=== PATIENT | male | born 1965 | race Caucasian/White ===

== ENCOUNTER 2017-04-16 02:39 | Inpatient (IN) | payer SELFPAY ==
[2017-04-16] MEDS ORDERED: SODIUM CHLORIDE 0.9% 1,000 ML IV ONE ×2 (02:46→03:25)
[2017-04-16] MEDS ORDERED: ONDANSETRON 4 MG/2 ML VIAL IVP STA ×2 (03:03→03:58)
[2017-04-16] MEDS ORDERED: MORPHINE 10 MG/ML VIAL IVP STA ×2 (03:03→03:43)
--- NOTE | 2017-04-16 03:03 | ED Physician Documentation ---
PD HPI ABD PAIN - Stated complaint Stated Complaint: NAUSEA - Chief complaint Chief Complaint: Abd Pain - History obtained from History obtained from: Patient - History of Present Illness Timing - onset: How many days ago (2) Timing - details: Gradual onset, Still present Quality: Cramping, Aching Location: All over / everywhere, Epigastric Worsened by: Eating Associated symptoms: Nausea, Constipation. No: Fever, Vomiting Similar symptoms before: Work up / diagnostics, Treatment Recently seen: Not recently seen - Additional information Additional information: patient is a 52 year old insulin dependent diabetic who is presenting to the emergency department for abdominal pain and nausea. Patient states that the symptoms started yesterday and have become progressively worse. patient states that he had a change in his insurance so he has not had any long acting insulin. Patient states that he has been in dka in the past and is worried that it is happening again. patient denies vomiting but states that after having his abdominal surgery he is unable to vomit. Patient reports a normal bowel movement yesterday. Review of Systems Constitutional: denies: Fever, Chills Eyes: denies: Decreased vision Ears: denies: Ear pain, Drainage/discharge Nose: reports: Reviewed and negative Throat: reports: Reviewed and negative Cardiac: denies: Chest pain / pressure, Palpitations Respiratory: denies: Dyspnea, Cough, Wheezing GI: reports: Abdominal Pain, Nausea. denies: Vomiting, Constipation, Diarrhea : denies: Dysuria, Frequency, Hesitancy Skin: denies: Rash, Lesions Musculoskeletal: denies: Neck pain, Back pain, Extremity pain Neurologic: denies: Generalized weakness, Focal weakness, Altered mental status Immunocompromised: denies: Immunocompromised PD PAST MEDICAL HISTORY - Present Medications Home Medications: Ambulatory Orders Medication Instructions Recorded Confirmed Gemfibrozil [Lopid] 600 mg PO BIDAC 04/16/17 04/16/17 Insulin Glargine [Lantus Solostar] 60 units SQ DAILY 04/16/17 04/16/17 Insulin Lispro [Humalog] 10 units SQ QID PRN 04/16/17 04/16/17 Lisinopril 20 mg PO DAILY 04/16/17 04/16/17 Methylphenidate HCl [Ritalin] 1 tab PO DAILY 04/16/17 04/16/17 Methylphenidate [Ritalin] 1 tab PO QPM 04/16/17 04/16/17 - Allergies Allergies/Adverse Reactions: Allergies Allergy/AdvReac Type Severity Reaction Status Date / Time No Known Drug Allergies Allergy Verified 04/16/17 02:47 PD ED PE NORMAL - General General: Alert and oriented X 3 - HEENT HEENT: Atraumatic - Neck Neck: Supple, no meningeal sign - Cardiac Cardiac: No murmur - Respiratory Respiratory: No respiratory distress, Clear bilaterally - Derm Derm: Normal color, Warm and dry, No rash - Extremities Extremities: No deformity, Normal ROM s pain, No edema, No calf tenderness / cord - Neuro Neuro: Alert and oriented X 3, No motor deficit, No sensory deficit, Normal speech - Psych Psych: Normal mood PD ED PE EXPANDED - General General: Alert, In Pain - HEENT HEENT: Dry mucous membranes, Other (poor dentition) - Cardiac Cardiac: Tachy - Abdomen Abdomen: Tender to palpation, Epigastric, Generalized/diffuse. No: Rebound, Guarding Results - Vitals Vitals: Vital Signs - 24 hr 04/16/17 04/16/17 02:40 03:23 Temperature 36.4 C L Heart Rate 134 H 106 H Respiratory 18 13 Rate Blood Pressure 133/86 H 132/100 H O2 Saturation 96 96 Oxygen O2 Source Room air - Labs Labs: Laboratory Tests 04/16/17 04/16/17 04/16/17 02:50 02:55 02:55 WBC 14.6 H RBC 5.76 Hgb 17.0 Hct 50.8 MCV 88.1 MCH 29.6 MCHC 33.6 RDW 13.5 Plt Count 305 MPV 9.2 Neut # 10.9 H Lymph # 2.5 [place] # 1.0 Eos # 0.1 Baso # 0.1 Absolute Nucleated RBC 0.01 Nucleated RBC % 0.0 VBG pH VBG pCO2 VBG pO2 VBG HCO3 VBG Total CO2 VBG O2 Saturation VBG Base Excess Sodium 132 L Potassium 4.3 Chloride 106 Carbon Dioxide 12 L* Anion Gap 14.0 H BUN 17 Creatinine 0.9 Estimated GFR (MDRD) 88 L Glucose 318 H Lactic Acid Calcium 9.2 Phosphorus 3.1 Magnesium 1.6 L Total Bilirubin 1.3 H AST 14 ALT 20 Alkaline Phosphatase 91 Total Protein 7.5 Albumin 4.3 Globulin 3.2 Albumin/Globulin Ratio 1.3 Lipase 122 H Urine Color YELLOW Urine Clarity CLEAR Urine pH 6.0 Ur Specific [place] >=1.030 H Urine Protein NEGATIVE Urine Glucose (UA) 500 H Urine Ketones >=80 H Urine Occult Blood NEGATIVE Urine Nitrite NEGATIVE Urine Bilirubin NEGATIVE Urine Urobilinogen 0.2 (NORMAL) Ur Leukocyte Esterase NEGATIVE Ur Microscopic Review NOT INDICATED Urine Culture Comments NOT INDICATED Serum Ketones MODERATE H 04/16/17 04/16/17 02:55 02:55 WBC RBC Hgb Hct MCV MCH MCHC RDW Plt Count MPV Neut # Lymph # [place] # Eos # Baso # Absolute Nucleated RBC Nucleated RBC % VBG pH 7.287 L VBG pCO2 27.7 L VBG pO2 87.9 H VBG HCO3 12.9 L VBG Total CO2 13.8 L VBG O2 Saturation 96.6 H VBG Base Excess -11.6 L Sodium Potassium Chloride Carbon Dioxide Anion Gap BUN Creatinine Estimated GFR (MDRD) Glucose Lactic Acid 1.0 Calcium Phosphorus Magnesium Total Bilirubin AST ALT Alkaline Phosphatase Total Protein Albumin Globulin Albumin/Globulin Ratio Lipase Urine Color Urine Clarity Urine pH Ur Specific [place] Urine Protein Urine Glucose (UA) Urine Ketones Urine Occult Blood Urine Nitrite Urine Bilirubin Urine Urobilinogen Ur Leukocyte Esterase Ur Microscopic Review Urine Culture Comments Serum Ketones - Rads (name of study) ct abdomen and pelvis Radiology: Final report received, See rad report (possible ileus) PD MEDICAL DECISION MAKING - ED course Complexity details: reviewed old records, reviewed results, re-evaluated patient , considered differential, d/w patient, d/w events solutions consultant ED course: Patient was seen and examined at bedside. IV access was gained and labs were drawn. patient was treated with a fluid bolus, zofran and morphine. Imaging was ordered. When patient's labs came back patient was found to be in mild dka. A second liter of fluid was added and patient was started on an insulin drip with supplemental potassium. Patient was still in pain and treated with additional morphine. patient was sent for imaging. When patient returned the results were reviewed. There were no specific emergent findings. Hospitalist was contacted and the case was discussed with her. Patient was admitted for further evaluation and care. Departure - Departure Disposition: ED Place in Observation Clinical Impression: DKA (diabetic ketoacidoses) Condition: Stable
[2017-04-16 03:10] LABS: GLUCOSE, URINE (UA) 500 mg/dL (NEGATIVE); KETONES,URINE (UA) >=80 mg/dL (NEGATIVE); LEUKOCYTE ESTERASE, URINE NEGATIVE (NEGATIVE); NITRITE,URINE NEGATIVE (NEGATIVE); OCCULT BLOOD,URINE NEGATIVE (NEGATIVE); PROTEIN,URINE NEGATIVE (NEGATIVE); UROBILINOGEN,URINE 0.2 (NORMAL) E.U./dL (NORMAL)
[2017-04-16 03:15] LABS: BASOPHILS # (AUTO) 0.1 10^3/uL (0.0-0.1); BASOPHILS % (AUTO) 0.8 %; EOSINOPHILS # (AUTO) 0.1 10^3/uL (0.0-0.7); EOSINOPHILS % (AUTO) 0.8 %; LYMPHOCYTES # (AUTO) 2.5 10^3/uL (1.5-3.5); LYMPHOCYTES % (AUTO) 16.9 %; MEAN CORPUSCULAR HEMOGLOBIN 29.6 pg (27.0-31.0); MEAN CORPUSCULAR HGB CONC 33.6 g/dL (32.0-36.0); MEAN CORPUSCULAR VOLUME 88.1 fL (80.0-94.0); MEAN PLATELET VOLUME 9.2 fL (7.4-11.4); NEUTROPHILS # (AUTO) 10.9 10^3/uL (1.5-6.6); NEUTROPHILS % (AUTO) 74.5 %; PLT - PLATELET COUNT 305 10^3/uL (130-450); RED BLOOD COUNT 5.76 10^6/uL (4.70-6.10); RED CELL DISTRIBUTION WIDTH 13.5 % (12.0-15.0); WHITE BLOOD COUNT 14.6 x10^3/uL (4.8-10.8)
[2017-04-16 03:18] LABS: BILIRUBIN,URINE NEGATIVE (NEGATIVE); CLARITY,URINE CLEAR (CLEAR); ICTOTEST,URINE NEGATIVE
[2017-04-16 03:19] LABS: KETONES, SERUM (ACETEST) MODERATE (NEGATIVE); VBG BASE EXCESS -11.6 mmol/L (-2 - +2); VBG PCO2 27.7 mmHg (41-51); VBG PH 7.287 (7.31-7.41); VBG PO2 87.9 mmHg (25-47); VBG TOTAL CO2 13.8 mmol/L (24-29)
[2017-04-16 03:30] LABS: ALBUMIN 4.3 g/dL (3.2-5.5); ALBUMIN/GLOBULIN RATIO 1.3 (1.0-2.2); ALKALINE PHOSPHATASE 91 IU/L (42-121); ALT ALANINE AMINOTRANSFERASE 20 IU/L (10-60); AST ASPARTATE AMINOTRANSFERASE 14 IU/L (10-42); BILIRUBIN,TOTAL 1.3 mg/dL (0.2-1.0); BUN - BLOOD UREA NITROGEN 17 mg/dL (6-20); CALCIUM 9.2 mg/dL (8.5-10.3); CHLORIDE 106 mmol/L (101-111); CREATININE 0.9 mg/dL (0.6-1.2); GFR - MDRD 88 (>89); GLUCOSE 318 mg/dL (70-100); LIPASE 122 U/L (22-51); MAGNESIUM 1.6 mg/dL (1.7-2.8); PHOSPHORUS 3.1 mg/dL (2.5-4.6); SODIUM 132 mmol/L (135-145); TOTAL PROTEIN 7.5 g/dL (6.7-8.2)
[2017-04-16 03:31] LABS: CARBON DIOXIDE - CO2 12 mmol/L (21-32)
[2017-04-16] MEDS ORDERED: POTASSIUM CHLOR 10 MEQ/100 ML 10 MEQ/100 ML BAG IV ONE (03:35)
[2017-04-16] MEDS ORDERED: INSULIN REGULAR HUMAN 100 UNIT in SODIUM CHLORIDE 0.9% 100ML 99 ML IV STA (03:35)
[2017-04-16] MEDS ORDERED: IOPAMIDOL-300 100 ML VIAL ONE (03:49)
[2017-04-16] MEDS ORDERED: INSULIN REGULAR HUMAN 100 UNIT/1 ML 10 ML MDV ONE ×2 (03:50→04:00)
[2017-04-16] MEDS ORDERED: ONDANSETRON 4 MG/2 ML VIAL IVP PRN (04:14)
[2017-04-16] MEDS ORDERED: SODIUM CHLORIDE FLUSH 0.9% 10 ML SYRINGE IVP PRN (04:14)
[2017-04-16] MEDS ORDERED: INSULIN REGULAR HUMAN 100 UNIT in SODIUM CHLORIDE 0.9% 100ML 99 ML IV SCH (04:14)
[2017-04-16] MEDS ORDERED: ONDANSETRON ODT 4 MG TABLET TL PRN (04:14)
[2017-04-16] MEDS ORDERED: PROCHLORPERAZINE 10 MG/2 ML VIAL IVP PRN (04:14)
[2017-04-16] MEDS ORDERED: IOPAMIDOL-300 100 ML VIAL IVP ONE (04:29)
--- NOTE | 2017-04-16 05:11 | CT Report ---
EXAM: CT ABDOMEN AND PELVIS EXAM DATE: 04/16/2017 04:19 AM. CLINICAL HISTORY: Diffuse abdominal pain, nausea, vomiting and leukocytosis. COMPARISONS: None. TECHNIQUE: Routine helical CT imaging was performed through the abdomen and pelvis. IV contrast: Isov ue 300 100mL. Enteric contrast: No. Reconstructions: Coronal and sagittal. In accordance with CT protocol optimization, one or more of the following dose reduction techniques w ere utilized for this exam: automated exposure control, adjustment of mA and/or KV based on patient s ize, or use of iterative reconstructive technique. FINDINGS: Lung Bases: Unremarkable. Liver: Fatty infiltration. Gallbladder/Bile Ducts: Images are degraded due to motion artifact. No calcified gallstones or obviou s cholecystitis. Spleen: Normal. Pancreas: Normal. Adrenal Glands: Normal. Kidneys: Right renal cyst. No masses or hydronephrosis. Peritoneal Cavity/Bowel: A few nonspecific dilated proximal small bowel loops are seen. No definite t ransition zone identified. There are some colonic diverticula. No diverticulitis is seen. No free air or free fluid is noted. No lymphadenopathy is seen. Appendix appears normal. Pelvic Organs: Normal. The bladder and visualized pelvic organs are within normal limits. Vasculature: No aneurysms or other significant abnormality. Bones: No significant abnormality. Other: Supraumbilical ventral hernia containing fat. IMPRESSION: 1. Images are degraded due to motion artifact. Fatty infiltration of the liver is noted. 2. A few mildly dilated proximal small bowel loops are seen. No definite transition zone is identifie d. This is nonspecific and could represent a localized ileus. 3. Appendix appears normal. 4. Colonic diverticula with no definite evidence of diverticulitis. 5. Small supraumbilical ventral hernia containing fat. No obvious incarceration. [facility] Referring Provider Line: [phone] SITE ID: [id number]
[2017-04-16 05:36] LABS: HB2 TOTAL 18.4 g/dL; HEMOGLOBIN A1C 1.81 g/dL; HEMOGLOBIN A1C % 11.2 % (4.6-6.2)
[2017-04-16] MEDS: MORPHINE 2 MG/ML SYRINGE IVP PRN ×2 (05:38→10:11)
[2017-04-16] MEDS: SODIUM CHLORIDE FLUSH 0.9% 10 ML SYRINGE IVP SCH ×2 (05:39→13:59)
[2017-04-16 06:24] LABS: GLUCOSE 242 mg/dL (70-100); KETONES, SERUM (ACETEST) MODERATE (NEGATIVE); MAGNESIUM 1.8 mg/dL (1.7-2.8)
--- NOTE | 2017-04-16 06:39 | HISTORY & PHYSICAL EXAMINATION ---
Chief Complaint - Chief Complaint Chief Complaint: abdominal pain on left side with nausea in a patient with DM History of Present Illness - Admitted From Admitted From:: emergency room - History Obtained From Records Reviewed: [facility] ER encounter History obtained from: patient Exam Limitations: none - History of Present Illness HPI Comment/Other: he was born in [place] and has lived in the [facility] area all his life and was most recently in [place]. 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 With running out of money, he ran out of Lantus and hasn't had it for a month or more. has been taking his short acting novolog only. He has also been hospitalized for DKA at least 3 times in the last year. He began having abd pain and nausea this week and finally became too severe so he came to the ER. He can't have emesis since he has a fundoplication for GERD and Hiatal hernia. The pain is in the LLQ and left mid abd. No diarrhea. Still with flatus. No appetite. Denies fever, chills, flank pain, hematuria, dysuria. He's had a colonscopy and has a hx of diverticulosis but no other pathology. He has had a partial prostatectomy for BPH and LUTS. In the ER, he had diastolic hypertension, was afebrile. Dry mouth. Labs with glucose under 400 but still with DKA. History - Past Medical History Cardiovascular: reports: Hypertension, High cholesterol Respiratory: reports: None Neuro: reports: None Endocrine/Autoimmune: reports: Type 2 diabetes (for 8 years. Denies neuropathy, nephroopathy but has the changes of early retinopathy) GI: reports: GERD, Hiatal hernia (fixed with Gilberto fundoplication) : reports: Benign prostate hypertrophy (with partial prostatectomy) HEENT: reports: Other (sinus surgery twice) Psych: reports: Anxiety Musculoskeletal: reports: Chronic back pain (mild from spinal stenosis of lumbar spine), Other ([place] toed with 2 orthopedic procedures as a child) MRSA Hx?: No - Past Surgical History Ortho: reports: Carpal Tunnel surgery, Other (ligation of ligaments for varus derformity LE when he was a child) - Family & Social History Family History Comment/Other: Mom at 73 of complications of DM Dad alive but frail at age 83, has hx of diverticulitis no siblings no children Living arrangement: At home Living Situation: Alone Social History Notes: Born in [place] and has lived in [facility] all his life. Currently in [facility]. He has no friends locally and is without a support system. Most of relatives live in [place] now. Not . Heterosexual. Never smoked. Rarely drinks and has never partook of cocaine, heroin, LSD, metamphetamines or cannibus. - Substance History Use: Uses substance without health or social issues: NONE Abuse: Recurrent use of substance despite neg consequences: NONE Dependence: Experiences withdrawal or developed tolerances: NONE - POLST Patient has POLST: No POLST Status: Full Code Meds/Allgy - Home Medications Home Medications: Ambulatory Orders Medication Instructions Recorded Confirmed Gemfibrozil [Lopid] 600 mg PO BIDAC 04/16/17 04/16/17 Insulin Glargine [Lantus Solostar] 60 units SQ DAILY 04/16/17 04/16/17 Insulin Lispro [Humalog] 10 units SQ QID PRN 04/16/17 04/16/17 Lisinopril 20 mg PO DAILY 04/16/17 04/16/17 Methylphenidate HCl [Ritalin] 1 tab PO DAILY 04/16/17 04/16/17 Methylphenidate [Ritalin] 1 tab PO QPM 04/16/17 04/16/17 - Allergies Allergies/Adverse Reactions: Allergies Allergy/AdvReac Type Severity Reaction Status Date / Time No Known Drug Allergies Allergy Verified 04/16/17 02:47 Review of Systems - Constitutional Constitutional: reports: Fatigue, Poor appetite. denies: Fever, Chills, Malaise , Weakness - Eyes Eyes: denies: Pain, Irritation, Amaurosis - Ears, Nose & Throat Ears, Nose & Throat: denies: Ear pain, Hearing loss, Tinnitus, Vertigo, Nasal pain, Nasal obstruction - Cardiovascular Cariovascular: denies: Irregular heart rate, Palpitations, Chest pain, Edema, Lightheadedness, Syncope - Respiratory Respiratory: denies: Cough, Sputum production, Wheezing, Snoring, Hemoptysis, SOB at rest, SOB with exertion - Gastrointestinal Gastrointestinal: reports: Abdominal pain (LLQ), Nausea, Reflux/heartburn. denies: Abdominal distention, Constipation, Diarrhea, Change in bowel habits, Black stools, Vomiting, Bile emesis, Coffee grounds emesis - Genitourinary Genitourinary: denies: Dysuria, Frequency, Urgency, Hematuria, Flank pain - Musculoskeletal Musculoskeletal: reports: Back pain (mild in neck). denies: Muscle pain - Integumentary Integumentary: denies: Rash, Pruritis, Lesions - Neurological Neurological: denies: General weakness, Focal weakness, Headache, Dizziness, Numbness, Memory problems - Psychiatric Psychiatric: denies: Depression, Anxiety, Suicidal - Endocrine Endocrine: denies: Polyuria, Polydypsia, Polyphagia, Intolerance to cold - Hematologic/Lymphatic Hematologic/Lymphatic: denies: Anemia, Bruising, Petechiae Exam - Vital Signs Reviewed Vital Signs: Yes Vital Signs: Vital Signs x48h Temp Pulse Pulse Resp BP BP Pulse Ox 04/16/17 06:00 95 15 130/89 H 04/16/17 05:14 36.8 C 90 14 142/93 H 97 04/16/17 04:52 36.5 C 95 21 129/86 H 97 04/16/17 04:34 108 H 25 H 129/86 H 97 - Physical Exam General Appearance: positive: No acute distress, Alert, Other (Well-nourished well-developed middle-aged white male in no acute distress) Eyes Bilateral: positive: PERRL, EOMI ENT: positive: Dry mucous membranes, Other (Very poor dentition with some of his teeth missing and those that remain have carries, and some of his teeth are chipped). negative: Oral lesions Neck: positive: No JVD. negative: Lymphadenopathy (R), Lymphadenopathy (L), Stiff neck, Carotid bruit Respiratory: positive: Chest non-tender. negative: Wheezes, Rales, Rhonchi Cardiovascular: positive: Regular rate & rhythm. negative: Systolic murmur, Gallop/S4, Friction rub Peripheral Pulses: positive: 1+ Abdomen: positive: Nml bowel sounds, Tenderness (In the left lower quadrant that is sharp. Present only with palpation.), Other (Large abdominal pannus from being overweight and the belly is overall soft, not distended). negative: Guarding, Rebound, Hepatomegaly, Splenomegaly Back: positive: Nml inspection. negative: CVA tenderness (R), CVA tenderness (L ) Skin: positive: No rash, Warm, Dry Extremities: positive: Non-tender, Full ROM, No pedal edema Neurologic/Psychiatric: positive: Oriented x3, CN's nml (2-12), Motor nml, Sensation nml Conclusion/Plan - Problem List (1) DKA (diabetic ketoacidoses) Conclusion/Plan: due to noncompliance with medications. Financial Issue. Plan: ICU with insulin drip. he's on 6 units and hour monitor glucose and when he's below 200, cut drip to 3. Keep on drip until at 1 unit/hr until anion gap is normal Monitor K, Phos, Mg and supplement as needed Once he's glucose is nml, start lantus 60 units and start to feed. he's anxious to get out because of the new job starting on Tuesday and because he has no insurance. Qualifiers: Diabetes mellitus type: type 2 Diabetes mellitus complication detail: without coma Qualified Code(s): E11.10 - Type 2 diabetes mellitus with ketoacidosis without coma (2) Hypomagnesemia Conclusion/Plan: as above will supplement with electrolyte replacement protocol. check regularly (3) LLQ abdominal pain Conclusion/Plan: without rebound, guarding.no change in BM. CT of abdomen with mild dilation of distal small bowel but not diverticulitis. Plan: reexamine frequently to make sure status doesn't change may be due to ileus from DKA no abx for now. (4) HTN (hypertension), benign Conclusion/Plan: resume his lisinopril. If not controlled in the outpatient setting, consider adding Norvasc. 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 Plan: will ask our case management team to help (6) Fatty liver disease, nonalcoholic Conclusion/Plan: with mild elevation of bilirubin. No pain on physical exam. Plan: make sure this is one of the issues he addresses with his PCP when he gets one Nutrition counsellling. - Lab Results Fish Bones: 04/16/17 02:55 04/16/17 06:05 - Diagnostic Imaging Results Diagnostic Imaging Results: positive: Final report reviewed - EKG Results EKG Interpreted Independently: No EKG Comparison: No prior EKG Core Measures - Anticipated LOS I expect patient to be DC'd or transferred within 96 hours.: Yes - DVT/VTE - Prophylaxis VTE/DVT Device ordered at admit?: Yes
[2017-04-16] MEDS ORDERED: GEMFIBROZIL 600 MG TABLET PO SCH (07:00)
[2017-04-16] MEDS ORDERED: MAGNESIUM OXIDE 400 MG TABLET PO SCH (07:00)
[2017-04-16] MEDS: METHYLPHENIDATE 5 MG TABLET PO SCH ×2 (08:22→09:06)
[2017-04-16 08:56] LABS: VBG BASE EXCESS -8.6 mmol/L (-2 - +2); VBG PCO2 32.2 mmHg (41-51); VBG PH 7.319 (7.31-7.41); VBG TOTAL CO2 17.2 mmol/L (24-29)
[2017-04-16] MEDS ORDERED: D5.45NS W/20 MEQ KCL 1,000 ML IV SCH (09:00)
[2017-04-16] MEDS ORDERED: LISINOPRIL 20 MG TABLET PO SCH (09:00)
[2017-04-16 09:06] LABS: CALCIUM 8.5 mg/dL (8.5-10.3); CREATININE 0.7 mg/dL (0.6-1.2)
[2017-04-16 09:14] LABS: MAGNESIUM 1.7 mg/dL (1.7-2.8)
[2017-04-16] MEDS ORDERED: INSULIN GLARGINE 300 UNIT/3 ML PEN SUBQ SCH (09:15)
[2017-04-16 09:49] LABS: KETONES, SERUM (ACETEST) SMALL (NEGATIVE)
[2017-04-16] MEDS ORDERED: INSULIN ASPART 300 UNIT/3 ML PEN SUBQ SCH (12:00)
[2017-04-16 12:47] LABS: BUN - BLOOD UREA NITROGEN 15 mg/dL (6-20); CALCIUM 8.5 mg/dL (8.5-10.3); CARBON DIOXIDE - CO2 21 mmol/L (21-32); CHLORIDE 105 mmol/L (101-111); CREATININE 0.7 mg/dL (0.6-1.2); GFR - MDRD 118 (>89); GLUCOSE 214 mg/dL (70-100); SODIUM 136 mmol/L (135-145)
[2017-04-16 13:02] VITALS: BP 120/78
--- NOTE | 2017-04-16 14:36 | Discharge Plan ---
Discharge Plan Disposition: Home, Self Care Condition: Fair Prescriptions: RX: Insulin Glargine [Lantus Solostar] 60 unit SUBQ DAILY #1 pen Diet: Diabetic Activity Restrictions: Activity as Tolerated Shower Restrictions: No Driving Restrictions: No Weight Bearing: Full Weight Additional Instructions or Follow Up instructions: You presented to the hospital with diabetic ketoacidosis. This occurred due to noncompliance with your insulin medication. Your DKA has now resolved with an insulin drip and IV fluids. I have prescribed you Lantus with a refill and you will need to take this medication along with checking her blood sugars. We have given her information about getting a new PCP as you are new [place]. Please follow-up with a primary care physician No Smoking: If you smoke, Please STOP! Call for help.
--- NOTE | 2017-04-16 14:58 | DISCHARGE SUMMARY ---
Discharge Summary Admit Date: 04/16/17 Discharge Date: 04/16/17 Discharging Provider: Mac Rangel MD Primary Care Provider: None Code Status: Attempt Resuscitation Condition at Discharge: Fair Discharge Disposition: 01 Home, Self Care - DIAGNOSES Admission Diagnoses: 1. Diabetic ketoacidosis 2. Hypomagnesemia 3. Left lower quadrant abdominal pain 4. Hypertension 5. Social problem not due to mental disorder 6. Fatty liver disease, nonalcoholic Discharge Diagnoses with Status of Each Condition: 1. Diabetic ketoacidosis 2. Hypomagnesemia 3. Hypertension 4. Fatty liver disease, nonalcoholic 5. Social problem not due to mental disorder - HPI History of Present Illness: Patient was born in [place] and has lived in the [facility] area all his life and was most recently in [place]. 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 With running out of money, he ran out of Lantus and hasn't had it for a month or more. has been taking his short acting novolog only. He has also been hospitalized for DKA at least 3 times in the last year. He began having abd pain and nausea this week and finally became too severe so he came to the ER. He can't have emesis since he has a fundoplication for GERD and Hiatal hernia. The pain is in the LLQ and left mid abd. No diarrhea. Still with flatus. No appetite. Denies fever, chills, flank pain, hematuria, dysuria. He's had a colonscopy and has a hx of diverticulosis but no other pathology. He has had a partial prostatectomy for BPH and LUTS. In the ER, he had diastolic hypertension, was afebrile. Dry mouth. Labs with glucose under 400 but still with DKA. - HOSPITAL COURSE Hospital Course: Patient was admitted to the intensive care unit for diabetic ketoacidosis. The patient was placed on an insulin drip, given IV fluids and his anion gap was monitored. On presentation the patient's anion gap was 14 and CO2 was 12 with elevated serum ketones and a blood glucose of 318. With treatment the patient' s anion gap closed and his bicarb was improved to 21. The patient was restarted on his home dose of Lantus and blood glucose was in the 200s prior to discharge. The [place] polisher. Patient was also given information about financial services given that he does not have insurance. The patient was given a prescription for Lantus to take home which he did state that he would fill. The patient was in stable condition at the time of discharge. The patient was counseled on need to be compliant with his medication regimen. - ALLERGIES Allergies/Adverse Reactions: Allergies Allergy/AdvReac Type Severity Reaction Status Date / Time No Known Drug Allergies Allergy Verified 04/16/17 02:47 - MEDICATIONS Home Medications: Ambulatory Orders Medication Instructions Recorded Confirmed Gemfibrozil [Lopid] 600 mg PO BIDAC 04/16/17 04/16/17 Insulin Glargine [Lantus Solostar] 60 unit SUBQ DAILY #1 pen 04/16/17 Insulin Lispro [Humalog] 4 - 11 units SQ QID PRN 04/16/17 04/16/17 Lisinopril 20 mg PO DAILY 04/16/17 04/16/17 Methylphenidate HCl [Ritalin] 10 mg PO DAILY 04/16/17 04/16/17 Methylphenidate [Ritalin] 5 mg PO QPM 04/16/17 04/16/17 - PHYSICAL EXAM AT DISCHARGE General Appearance: positive: No acute distress, Alert Eyes Bilateral: positive: Normal inspection, PERRL, EOMI, No lid inflammation, Conjunctivae nml, No scleral icterus ENT: positive: ENT inspection nml, Pharynx nml, No signs of dehydration. negative: Purulent nasal drainage, Pharyngeal erythema, Oral lesions Neck: positive: Nml inspection, Thyroid nml, No JVD, Trachea midline. negative : Lymphadenopathy (R), Lymphadenopathy (L) Respiratory: positive: Chest non-tender, No respiratory distress, Breath sounds nml. negative: Wheezes, Rales, Rhonchi Cardiovascular: positive: Regular rate & rhythm, No murmur, No gallop Peripheral Pulses: positive: 2+ Abdomen: positive: Non-tender, No organomegaly, Nml bowel sounds, No distention. negative: Guarding, Rebound, Hepatomegaly Back: positive: Nml inspection. negative: CVA tenderness (R), CVA tenderness (L ) Skin: positive: Color nml, No rash, Warm. negative: Dry, Cyanosis, Diaphoresis Extremities: positive: Non-tender, Full ROM, Nml appearance, No pedal edema Neurologic/Psychiatric: positive: Oriented x3, CN's nml (2-12), Motor nml, Sensation nml, Mood/affect nml - LABS Result Diagrams: 04/16/17 02:55 04/16/17 12:20 Other Lab Results: Laboratory Results WBC 14.6 x10^3/uL (4.8-10.8) H 04/16/17 02:55 RBC 5.76 10^6/uL (4.70-6.10) 04/16/17 02:55 Hgb 17.0 g/dL (14.0-18.0) 04/16/17 02:55 Hct 50.8 % (42.0-52.0) 04/16/17 02:55 MCV 88.1 fL (80.0-94.0) 04/16/17 02:55 MCH 29.6 pg (27.0-31.0) 04/16/17 02:55 MCHC 33.6 g/dL (32.0-36.0) 04/16/17 02:55 RDW 13.5 % (12.0-15.0) 04/16/17 02:55 Plt Count 305 10^3/uL (130-450) 04/16/17 02:55 MPV 9.2 fL (7.4-11.4) 04/16/17 02:55 Neut # 10.9 10^3/uL (1.5-6.6) H 04/16/17 02:55 Lymph # 2.5 10^3/uL (1.5-3.5) 04/16/17 02:55 [place] # 1.0 10^3/uL (0.0-1.0) 04/16/17 02:55 Eos # 0.1 10^3/uL (0.0-0.7) 04/16/17 02:55 Baso # 0.1 10^3/uL (0.0-0.1) 04/16/17 02:55 Absolute Nucleated RBC 0.01 x10^3/uL 04/16/17 02:55 Nucleated RBC % 0.0 /100WBC 04/16/17 02:55 VBG pH 7.319 (7.31-7.41) 04/16/17 08:52 VBG pCO2 32.2 mmHg (41-51) L 04/16/17 08:52 VBG pO2 76.0 mmHg (25-47) H 04/16/17 08:52 VBG HCO3 16.2 mmol/L (23-28) L 04/16/17 08:52 VBG Total CO2 17.2 mmol/L (24-29) L 04/16/17 08:52 VBG O2 Saturation 95.3 % (60-80) H 04/16/17 08:52 VBG Base Excess -8.6 mmol/L (-2 - +2) L 04/16/17 08:52 Sodium 136 mmol/L (135-145) 04/16/17 12:20 Potassium 3.8 mmol/L (3.5-5.0) 04/16/17 12:20 Chloride 105 mmol/L (101-111) 04/16/17 12:20 Carbon Dioxide 21 mmol/L (21-32) 04/16/17 12:20 Anion Gap 10.0 (6-13) 04/16/17 12:20 BUN 15 mg/dL (6-20) 04/16/17 12:20 Creatinine 0.7 mg/dL (0.6-1.2) 04/16/17 12:20 Estimated GFR (MDRD) 118 (>89) 04/16/17 12:20 Glucose 214 mg/dL (70-100) H 04/16/17 12:20 POC Whole Bld Glucose 208 mg/dL (70 - 100) H 04/16/17 11:57 Glycated Hemoglobin 11.2 % (4.6-6.2) H 04/16/17 02:05 Estim Average Glucose 275 (70-100) H 04/16/17 02:05 Lactic Acid 1.0 mmol/L (0.5-2.2) 04/16/17 02:55 Calcium 8.5 mg/dL (8.5-10.3) 04/16/17 12:20 Ionized Calcium NO 04/16/17 12:20 Phosphorus 3.1 mg/dL (2.5-4.6) 04/16/17 02:55 Magnesium 1.7 mg/dL (1.7-2.8) 04/16/17 08:52 Total Bilirubin 1.3 mg/dL (0.2-1.0) H 04/16/17 02:55 AST 14 IU/L (10-42) 04/16/17 02:55 ALT 20 IU/L (10-60) 04/16/17 02:55 Alkaline Phosphatase 91 IU/L (42-121) 04/16/17 02:55 Troponin I < 0.04 ng/mL (<0.49) 04/16/17 12:20 Total Protein 7.5 g/dL (6.7-8.2) 04/16/17 02:55 Albumin 4.3 g/dL (3.2-5.5) 04/16/17 02:55 Globulin 3.2 g/dL (2.1-4.2) 04/16/17 02:55 Albumin/Globulin Ratio 1.3 (1.0-2.2) 04/16/17 02:55 Lipase 122 U/L (22-51) H 04/16/17 02:55 Urine Color YELLOW 04/16/17 02:50 Urine Clarity CLEAR (CLEAR) 04/16/17 02:50 Urine pH 6.0 PH (5.0-7.5) 04/16/17 02:50 Ur Specific [place] >=1.030 (1.002-1.030) H 04/16/17 02:50 Urine Protein NEGATIVE mg/dL (NEGATIVE) 04/16/17 02:50 Urine Glucose (UA) 500 mg/dL (NEGATIVE) H 04/16/17 02:50 Urine Ketones >=80 mg/dL (NEGATIVE) H 04/16/17 02:50 Urine Occult Blood NEGATIVE (NEGATIVE) 04/16/17 02:50 Urine Nitrite NEGATIVE (NEGATIVE) 04/16/17 02:50 Urine Bilirubin NEGATIVE (NEGATIVE) 04/16/17 02:50 Urine Urobilinogen 0.2 (NORMAL) E.U./dL (NORMAL) 04/16/17 02:50 Ur Leukocyte Esterase NEGATIVE (NEGATIVE) 04/16/17 02:50 Ur Microscopic Review NOT INDICATED 04/16/17 02:50 Urine Culture Comments NOT INDICATED 04/16/17 02:50 Serum Ketones SMALL (NEGATIVE) H 04/16/17 12:20 - DIAGNOSTIC IMAGING Diagnostic Imaging Results: Final report reviewed Diagnostic Imaging Results Comments: CT abdomen/pelvis Impression: 1. Images are degraded due to motion artifact. Fatty infiltration of the liver is noted. 2. A few mildly dilated proximal small bowel loops are seen. No definite transition zone is identified. This is nonspecific and could represent a localized ileus. 3. Appendix appears normal. 4. Colonic diverticula with no definite evidence of diverticulitis 4. Small supraumbilical ventral hernia containing fat. No obvious incarceration. - FOLLOW UP Follow Up: Patient will need to find a primary care physician for which patient was given information. He was told to follow-up with his PCP. He was also given a prescription for Lantus which he will fill. Patient was discharged in stable condition - TIME SPENT Time Spent in Discharge (Minutes): 45
[2017-04-16] MEDS ORDERED: METHYLPHENIDATE 5 MG TABLET PO SCH (17:00)
== END 2017-04-16 15:10 | disposition home or self-care (01) | DRG 639 ==
LOC: ED 02:39 → ICU 04:14
PROVIDERS: ADMIT Specialist; ATTEND Internal Medicine
DX: E11.10 Type 2 diabetes mellitus with ketoacidosis without coma (principal); T38.3X6A Underdosing of insulin and oral hypoglycemic [antidiabetic] drugs, initial encounter; I10 Essential (primary) hypertension; E78.00 Pure hypercholesterolemia, unspecified; E11.319 Type 2 diabetes mellitus with unspecified diabetic retinopathy without macular edema; E66.3 Overweight; E83.42 Hypomagnesemia; K76.0 Fatty (change of) liver, not elsewhere classified; Z91.120 Patient's intentional underdosing of medication regimen due to financial hardship; Z68.33 Body mass index [BMI] 33.0-33.9, adult; Z87.438 Personal history of other diseases of male genital organs; Z87.19 Personal history of other diseases of the digestive system; Z79.4 Long term (current) use of insulin
CPT/HCPCS: 36415; 74177; 80048; 80053; 81001; 81003; 82009; 82803; 82947; 83036; 83605; 83690; 83735; 84100; 84484; 85025; 87086; 87150; 93005; 96361; 96374; 96375; 96376; 99285

== ENCOUNTER 2018-10-03 09:55 | Outpatient (CLI) | payer OTHER ==
--- NOTE | 2018-10-03 12:59 | XRAY Report ---
Reason: HX OF CERVICAL SPINAL STENOSIS,ACUTE ON CHRONIC N Procedure Date: 10/03/2018 Accession Number: [id number] / [id number] Procedure: XR - Cervical Spine 2 View CPT Code: FULL RESULT: EXAM: CERVICAL SPINE RADIOGRAPHY EXAM DATE: 10/03/2018 10:11 AM. CLINICAL HISTORY: History of cervical spinal stenosis, acute on chronic. COMPARISONS: None. TECHNIQUE: 3 views. FINDINGS: Alignment: Normal. No spondylolisthesis or scoliosis. Bones: The cervical vertebral bodies and posterior elements are well visualized from the skull base through C6-C7. No fractures or bone lesions. Disks: There is mild loss of disk space height mostly at C5-C6 where there is marginal osteophytosis. Facets: There is mild facet arthropathy/lateral mass hypertrophy, most pronounced at C5-C6. Soft Tissues: Normal. No prevertebral soft tissue swelling. The visualized lung apices are clear. IMPRESSION: Mild degenerative changes. RADIA
== END 2018-10-03 09:56 | disposition home or self-care (01) ==
LOC: DI 09:55
PROVIDERS: ATTEND Physician Assistant Medical
DX: M47.812 Spondylosis without myelopathy or radiculopathy, cervical region (principal); M50.322 Other cervical disc degeneration at C5-C6 level
CPT/HCPCS: 72040

== ENCOUNTER 2019-04-27 09:23 | Outpatient (CLI) | payer SELFPAY ==
--- NOTE | 2019-04-27 11:31 | XRAY Report ---
Reason: WRIST PAIN,SNUGGBOX TENDERNESS. CONCERN FOR SCAPHO Procedure Date: 04/27/2019 Accession Number: [id number] / [id number] Procedure: XR - Wrist 3 View RT CPT Code: Final Report FULL RESULT: EXAM: RIGHT WRIST RADIOGRAPHY EXAM DATE: 04/27/2019 09:39 AM. CLINICAL HISTORY: WRIST PAIN,SNUFF BOX TENDERNESS. CONCERN FOR SCAPHO. COMPARISON: None. TECHNIQUE: 3 views. FINDINGS: Bones: Normal. No fractures or bone lesions. Joints: Normal. No subluxations. Soft Tissues: Soft tissue swelling. IMPRESSION: Normal wrist radiography. RADIA
== END 2019-04-27 09:24 | disposition home or self-care (01) ==
LOC: DI 09:23
PROVIDERS: ATTEND Physician Assistant
DX: M25.531 Pain in right wrist (principal)